=== PATIENT | male | born 1950 | race Caucasian/White ===

== ENCOUNTER 2022-01-02 18:22 | Emergency (ER) | payer MEDICARE, OTHER ==
[2022-01-02 23:22] LABS: ESTIMATED GFR 65 mL/min (>60)
== END 2022-01-03 00:15 | disposition home or self-care (01) ==
LOC: JD.ED 18:22
DX: E11.649 Type 2 diabetes mellitus with hypoglycemia without coma (principal); E78.00 Pure hypercholesterolemia, unspecified; I10 Essential (primary) hypertension; K21.9 Gastro-esophageal reflux disease without esophagitis; M10.9 Gout, unspecified; E66.9 Obesity, unspecified; Z68.30 Body mass index [BMI] 30.0-30.9, adult; Z20.822 Contact with and (suspected) exposure to COVID-19
CPT/HCPCS: 36415; 80053; 84484; 85025; 85379; 93005; 99284; U0002; 93010; 99283